=== PATIENT | male | born 1970 | race American Indian/Alaskan Native ===

== ENCOUNTER 2020-03-30 10:52 | Outpatient (CLI) | payer OTHER ==
--- NOTE | 2020-03-30 13:12 | XRay Report ---
CHEST PA AND LATERAL VIEWS INDICATION: MAIN. Chest pain COMPARISON: None FINDINGS: Support devices: None Heart: Normal Lungs/Pleura: No acute pulmonary or pleural findings. IMPRESSION: 1. No acute disease. Signer Name: Zay Cuevas MD Signed: 03/30/2020 1:08 PM Workstation Name: [id number]
--- NOTE | 2020-03-30 13:14 | XRay Report ---
LEFT KNEE 2 VIEWS, LEFT HIP 2 VIEWS INDICATION / CLINICAL INFORMATION: LEFT HIP PAIN. COMPARISON: None available. FINDINGS: Left knee: Moderate degenerative change but no fracture or other acute abnormality. No evidence of si gnificant joint effusion. Left hip 2 views: No fracture or other significant abnormality. Signer Name: Zay Cuevas MD Signed: 03/30/2020 1:09 PM Workstation Name: [id number]
== END 2020-03-30 10:53 | disposition home or self-care (01) ==
LOC: XRAY 10:52
PROVIDERS: ATTEND Internal Medicine
DX: M16.12 Unilateral primary osteoarthritis, left hip (principal); M17.12 Unilateral primary osteoarthritis, left knee; R07.9 Chest pain, unspecified
CPT/HCPCS: 71046